=== PATIENT | female | born 1965 | race Caucasian/White ===

== ENCOUNTER 2023-04-27 07:45 | Inpatient (IN) | payer OTHER, SELFPAY ==
[2023-03-04 12:59] VITALS: BMI 32.4
[2023-04-27] VITALS (14 sets, daily range): BP systolic 112–133; BP diastolic 62–87; PULSE 92–112; RESP 13–20; TEMP 36.1–36.8; O2SAT 90–99; BMI 33.8
[2023-04-27] MEDS: ACETAMINOPHEN 325 MG TABLET 975 MG PO (08:35)
[2023-04-27] MEDS: GABAPENTIN 300 MG CAPSULE PO (08:36)
[2023-04-27] MEDS: LACTATED RINGERS 1,000 ML 42 ML IV ×2 (08:37→12:14)
--- NOTE | 2023-04-27 08:53 | P.HP_ITS ---
History of Present Illness History of Present Illness Date Patient Seen: 04/27/23 Time Patient Seen: 08:54 Date of Onset of Symptoms: 07/31/22 Chief complaint: back pain, right leg pain Narrative: Karen is a 57 year old F who is status post bilateral L4-5 transforaminal epidural steroid injection on November 18. Unfortunately she only received brief relief for a few days from the injection. She continues to have pain that is 5?6/10. She continues to have pain in the lower lumbar spine with cramping numbness and tingling down bilateral thighs and buttocks and lower extremities. Conservative treatments have included massage PT, and injections. Treatments have failed and symptoms are worsening. She has significant limitation performing activities of daily living due to her pain. She used to work as a special medical practice manager, which was causing worsening symptoms due to the physical demand. She is transitioning away from this line of work which she feels will help lower the risks for future flare ups. She has symptoms of neurogenic claudication with worsening leg symptoms when she stands and relief when she leans forward and lean on a shopping cart. [facility] Medical History Seizure disorder History of COVID-19 (2019) Anesthesia complication Depression Spinal stenosis UTI (urinary tract infection) (02/17/23) Asthma HLD (hyperlipidemia) HTN (hypertension) Fibromyalgia Epilepsy Surgical History History of surgery History of surgery History of total right knee replacement History of total left knee replacement Hx of hernia repair (08/2022) History of kidney surgery (12/2022) History of endometrial ablation Hx of cholecystectomy (06/1996) History of (06/1996) Hx of tonsillectomy Social History household members: spouse Smoking Status: Never smoker alcohol intake: never Meds Home Medications and Allergies Home Medications Medication Instructions Recorded Confirmed Type aspirin 81 mg tablet,delayed 81 mg PO DAILY 03/04/23 04/27/23 History release cyclobenzaprine 10 mg tablet 40 mg PO BEDTIME 03/04/23 04/27/23 History lisinopril 20 mg tablet 20 mg PO BEDTIME 03/04/23 04/27/23 History metoprolol succinate 50 mg 50 mg PO BEDTIME 03/04/23 04/27/23 History tablet,extended release 24 hr pregabalin 100 mg capsule (Lyrica) 200 mg PO BEDTIME 03/04/23 04/27/23 History Allergies Allergy/AdvReac Type Severity Reaction Status Date / Time phenobarbital Allergy Mild Hives, Verified 04/27/23 08:29 Fever Sulfa (Sulfonamide Allergy Mild Hives, Verified 04/27/23 08:29 Antibiotics) Fever Review of Systems Review of Systems ROS: Yes All systems reviewed with the patient and are negative except as otherwise documented Exam Const General: cooperative Orientation: alert and oriented x3 Back/Spine/Pelvis Other: painful ROM of lumbar at waist level, skin intact no lesions Neuro Other: + straight leg raise to RLE, sensibility decreased to R L5, S1 dermatome, motor strength 4/5 in right TA at 4/5. Assessment & Plan Assessment & Plan narrative: Ms. Singleton is here for evaluation of her lumbar spine. She has back pain, leg symptoms consistent with neurogenic claudication. She has previous treatment including PT, massage therapy, multiple IVÁN in her lumbar spine without significant relief. She has L3-4, L4-5, L5-S1 spinal stenosis, L4-5 anterolisthesis measuring 6 mm, epidural lipomatosis contributing to moderate spinal stenosis at L3-4, L5-S1. I discussed additional treatment options including surgery. She is significantly limited by her symptoms and she failed over 6 months of conservative care. She may benefit from L4-5 decompression and fusion to address her anterolisthesis. She will benefit from L3-4, L5-S1 laminectomy for decompression to address her spinal stenosis. Risks for surgery include but not limited to bleeding, infection, nerve/dura/bladder/bowel/blood vessel injury, need for additional procedure, even . Patient understands and would like to proceed with surgery. I scheduled her for L3-4, L5-S1 laminectomy, L4-5 TLIF.
[2023-04-27] MEDS: CEFAZOLIN 2 GM/100 ML PREMIX 100 ML IV ×2 (10:05→18:10)
--- NOTE | 2023-04-27 10:21 | SUR.OPER ---
Prone on spine table, head in foam head support, padded chest and pelvic supports, gel pad at knees, lower legs supported by pillows; nipples, genitalia and toes free of pressure, arms secured on foam padded arm boards at <90 degrees abduction. Tape over blanket at thigh secured to table.
[2023-04-27] MEDS: BUPIVACAINE 0.25% (PF) 60 ML, EPINEPHrine 0.15 MG INJ (10:36)
[2023-04-27] MEDS: BUPIVACAINE LIPOSOME 266 MG/20 ML VIAL INJ (10:36)
--- NOTE | 2023-04-27 13:13 | P.OP_ITS ---
Operative Date/Time/Diagnoses Date of procedure: 04/27/23 Time of procedure: 10:00 Pre-op diagnosis: 1. L4-5 spondylolisthesis 2. L4-5, L5-S1 spinal stenosis with neurogenic claudication 3. Epidural lipomatosis Post-op diagnosis: same Procedure & Clinicians Procedure: 1. L4-5 Postero-lateral and posterior interbody fusion 2. L4-5 interbody cage placement. 3. L4-5 decompressive laminectomy with bilateral facetecomies 4. L4-5 Posterior non-segmental instrumentation 5. L5-S1 laminectomy 6. Pavillion of bone marrow from iliac crest 7. Utilization of microsurgical technique and operating microscope Same procedure as scheduled: Yes Indications: Patient has been having chronic back pain and worsening bilateral leg weakness numbness and cramping. Patient was found to have L4-5 L5-S1 spinal stenosis L4-5 spondylolisthesis with epidural lipomatosis correlating with her symptoms. Patient failed multiple conservative management with worsening pain weakness and numbness in her lower extremity. Patient has been having difficulty performing activity of daily living. After discussing risks benefits of treatment options, patient elected proceed with surgery. Surgeon: Don Moreira Human Resources Intern: Laura Byrd Click Yes if Unassisted: No Anesthesia Type: General Operative Notes Closure Type: primary Specimen(s): none sent Prosthetic devices, grafts, tissues, transplants, or devices: Globus revolve screws, Rise cage Estimated Blood Loss (mL): 150 Blood products transfused: none Procedure in detail: Patient was seen in the preoperative area. Risks and benefits of the surgery was discussed with the patient. Informed consent was obtained from the patient and placed in the chart. Surgical site was marked. Patient was taken to the operative room. General anesthesia was administered. Prophylactic antibiotic was given to the patient less than 30 min before the incision was made. Patient was placed into a prone position on the Jonny table. Patient's back was then prepped and draped in the sterile fashion. Time-out was performed at this time. Using AP and lateral C-arm imaging the interval between L4-5 L5-S1 was identified and marked on patient's back. A 2 inch incision 2 in from midline was made on the right side first. The fascia was incised in line with skin incision. Globus MARS retractors was placed inside the incision and docked onto the L4 lamina. Using microsurgical technique and operating microscope, a L4 laminectomy and L4-5 facetectomy was performed using a Kerrison rongeur. The laminectomy and facetectomy was performed in order to decompress patient's cauda equina as well as the nerve roots exiting at the L4-5 level. The disc space at L4-5 was identified. And a total diskectomy was performed at L4-5 level. The endplates were decorticated using a rasp and shaver. The total diskectomy and decortication was performed at L4-5 level in order to to accomplish a L4-5 fusion. The local bone from the laminectomy and facetectomy was saved for local bone grafting. After the total diskectomy and decortication was completed, DBM bone graft material was combined with local bone that was harvested earlier. At this time, a separate skin is incision was made over the iliac crest. A Jamshidi needle was inserted into the iliac crest through a separate skin incision. 5 cc of bone marrow aspiration was obtained through the separate skin incision using a Jamshidi needle from the iliac crest. The bone marrow aspiration was combined with local bone and the via cell bone grafting material. The bone grafting material was placed into the L4-5 interbody space along with a expandable cage. The cage was expanded to its maximum height using the torque limiting screwdriver. At this time the MARS retractor was redirected over the L5 lamina. Using microsurgical technique and operating microscope, a L5-S1 laminectomy was performed using the Kerrison rongeur. The ligamentum flavum was also resected at the site of the laminectomy for further decompression of the epidural space. Patient was found have significant amount of epidural lipomatosis at the L5-S1 epidural space. The lipoma was also resected at the site of the laminectomy to further decompress the epidural space. At this time a mirror image incision was made on the left side. The fascia was incised in line with the skin incision. Globus MARS retractor was inserted and docked onto the L4-5 posterolateral gutter. Using the power drill, posterior- lateral decortication was performed at L4-5 level until bleeding cortical bone was identified. The remaining bone grafting material was placed into the L4-5 posterior lateral gutter he order to accomplish posterolateral fusion at the L4- 5 level. Using the double C-arm technique, pedicle screws were placed into the L4 and L5 pedicles bilaterally. This was done by placing the Jamshidi needle into the pedicles, then placing the guidewires over the Jamshidi needle, and finally placing the cannulated screws over the guidewires bilaterally. After the pedicle screws were placed, 2 titanium rods was locked into the heads of the pedicle screws using locking caps and torque limiting screwdriver. During screw placement, patient's bone was felt to be soft consistent with osteopenia or osteoporosis. Larger size 7.5 mm diameter screws were used in order to gain additional purchase with exception of the L4 right pedicle which was only able to accommodate a 6.5 mm screw. After all the hardware was placed, and confirmed with AP and lateral C-arm imaging, the wound was then irrigated with sterile normal saline and packed with Ray-Nadiya gauze for 3 min to accomplish hemostasis. After the gauze was removed the deep fascia was closed with #1 Vicryl suture. The subcutaneous layer was closed with 2-0 Vicryl. The skin was closed with skin jeanine. Patient tolerated the procedure well. There were no complications. Neuro monitoring was utilized during the entire procedure the signal was stable throughout entire procedure. The Operation could not have been safely performed without compromising the technical result or length of the procedure, without the assistance of a skilled medical office receptionist assistant. The medical office receptionist assistant was medically necessary for proper positioning, retraction and manipulation of instruments, proper exposure, surgical preparation, and manipulation of tissue. Complications: none Post-operative Condition: stable Disposition: PACU Plan for aftercare: Admit to inpatient hospital
--- NOTE | 2023-04-27 13:22 | DI.RAD.S_ITS ---
PROCEDURE: XR LUMBAR SPINE 2-3V INDICATIONS: L4-5 TLIF TECHNIQUE: 2 intraoperative views of the lumbar spine were acquired. COMPARISON: None. FINDINGS: Bones: Intraoperative views during L4-5 posterior lumbar fixation and discectomy. IMPRESSION: Intraoperative views during L4-5 posterior lumbar fixation and discectomy. Hardware appears intact. Dictated by: Graham Saini M.D. on 04/27/2023 at 13:59 Approved by: Graham Saini M.D. on 04/27/2023 at 14:05
[2023-04-27] MEDS: OXYCODONE IR 5 MG TABLET PO (14:22)
[2023-04-27] MEDS: LACTATED RINGERS 1,000 ML 125 ML IV (14:45)
--- NOTE | 2023-04-27 14:47 | SUR.PHASEI ---
Angelique RN notified that bladder scan completed post procedure with 50ml retaining. Also aware that patient is receiving their second bag and has completed one liter of fluid intake
[2023-04-27] MEDS: ONDANSETRON 4 MG/2 ML INJ IV (15:17)
[2023-04-27] MEDS: OXYCODONE IR 10 MG TABLET PO ×2 (15:59→19:39)
[2023-04-27] MEDS: ONDANSETRON 4 MG ODT SL (19:42)
[2023-04-27] MEDS: METOPROLOL ER 50 MG TABLET PO (20:59)
[2023-04-27] MEDS: DOCUSATE 100 MG CAPSULE PO (21:00)
[2023-04-27] MEDS: lisinopriL 20 MG TABLET PO (21:00)
[2023-04-27] MEDS: CYCLOBENZAPRINE 10 MG TABLET 40 MG PO (21:00)
[2023-04-27] MEDS: SENNOSIDES 8.6 MG TABLET 17.2 MG PO (21:00)
[2023-04-27] MEDS: PREGABALIN 50 MG CAPSULE 200 MG PO (21:01)
[2023-04-28] VITALS: BP 106/59; PULSE 95; RESP 16; TEMP 36.1; O2SAT 99
[2023-04-28] MEDS: OXYCODONE IR 10 MG TABLET PO ×4 (00:12→12:56)
[2023-04-28] MEDS: CEFAZOLIN 2 GM/100 ML PREMIX 100 ML IV (01:35)
[2023-04-28 05:39] LABS: Hematocrit 27.4 % (36-46); Hemoglobin 9.6 g/dL (12.0-16.0)
[2023-04-28] MEDS: DOCUSATE 100 MG CAPSULE PO (08:13)
[2023-04-28] MEDS: LACTATED RINGERS 1,000 ML 125 ML IV (08:40)
--- NOTE | 2023-04-28 08:45 | PT.IIE ---
Current Diagnoses Spondylolisthesis, lumbar region (04/27/23) Spinal stenosis, lumbar region with neurogenic claudication (04/27/23) Surgery Performed Operation Date: 04/27/23 09:30 Actual Procedures p L4-5 TLIF; L5-S1 laminectomy - Don Moreira MD Surgical History (Last Reviewed 04/27/23 @ 08:56 by Don Moreira MD) History of (06/1996) History of endometrial ablation History of kidney surgery (12/2022) History of surgery History of surgery History of total left knee replacement History of total right knee replacement Hx of cholecystectomy (06/1996) Hx of hernia repair (08/2022) Hx of tonsillectomy Medical History (Last Reviewed 04/27/23 @ 08:56 by Don Moreira MD) Anesthesia complication Asthma Depression Epilepsy Fibromyalgia History of COVID-19 (2019) HLD (hyperlipidemia) HTN (hypertension) Seizure disorder Spinal stenosis UTI (urinary tract infection) (02/17/23) Physical Therapy Inpatient Evaluation/Re-Eval M1 PT/OT-IP Prior Functional Status Start: 04/28/23 11:34 Freq: NEEDED Status: Active Protocol: Document 04/28/23 08:45 AB (Rec: 04/28/23 11:48 AB [id number]) Medical Review Prior Functional Status Medical History Reviewed Yes Communication able to make needs known Mobility and Gait pt stated that she was independent with all mobilities and ambulation without AD Activities of Daily Living and IADL's per OT note: Had pain but able to do ADL and IADL needs. Social History Household Members spouse Living Arrangements House Number of Floors (Floors) One Floor Number of Stairs To Enter/Railing? 2 platform steps with bilateral rails. Home Environment High Toilet,Tub/Shower Home Equipment Front Wheel Walker,Shower Seat without Backrest,Skin Toggler,Grab Bars Near Toilet,Grab Bars In Shower Additional Social History Comment pt stated that her mom lives ~ 1 mile away and can assist her if needed M2 PT-IP Current Condition Start: 04/28/23 11:34 Freq: NEEDED Status: Active Protocol: Document 04/28/23 08:45 AB (Rec: 04/28/23 11:48 AB [id number]) Physical Therapy Current Condition Current Condition Evaluation Date 04/28/23 Treatment Diagnosis s/p L4-5 TLIF; L5S1 lami; difficulty in walking Onset Date 04/27/23 M3 PT-IP Subjective Start: 04/28/23 11:34 Freq: NEEDED Status: Active Protocol: Document 04/28/23 08:45 AB (Rec: 04/28/23 11:48 AB [id number]) Subjective Physical Therapy Visit Type Type Initial Evaluation Visit Start Time 08:45 Visit Stop Time 09:55 Number of [facility]ENTERER Visits 0 Physical Therapy Visit Comments Patient Comments agreeable to do PT Therapy Pain Assessment Pain When Pain Assessed At Rest Pain Present Pain Present Pain Reported Location low back Intensity 6 Scale Used Numeric (0 - 10) Pain Management Techniques Distraction,Modification of Treatment,Re-positioning, Timing of Activity with Medications M4 PT-IP Mobility and Gait Start: 04/28/23 11:34 Freq: NEEDED Status: Active Protocol: Document 04/28/23 08:45 AB (Rec: 04/28/23 11:48 AB [id number]) PT-Bed Mobility Assessment Rolling Type of Rolling Log Rolling Level of Assist Standby Assistance Supine to Sit Supine to Sit Standby Assistance Sit to Supine Sit to Supine Standby Assistance,Minimal Assistance PT-Transfer Assessment Sit to and From Stand Sit to and from Stand Contact Guard Assistance,1 Person Assistance,Use of Upper Extremities Equipment Transfer Assistive Device Gait Belt,Front Wheeled Walker Orthotic/Prosthetic Devices or Brace: No Transfers Transfer Destination Bed,Chair Transfer Technique ambulated Transfer Ability Level of Assist Contact Guard Assistance,1 Person Assistance,Use of Upper Extremities Comments Mobility Comments pt supine in bed and agreeable to do PT. spouse in room with pt. obtained PLOF and home set up from pt and spouse . post-op folder provided and reviewed contents. educated pt regarding back precautions and log roll bed mobility. BP in supine: 94/55. pt completed log roll supine to sit SBA and max cues. completed sit to supine min A with LE elevation to bed and max cues for techniques. pt with difficulty following directions and gets easily distracted. stated that the pain meds make her brain foggy . pt completed sit to supine SBA and cues. Bp in sittin/56 completed sit to stand CGA and cues and ambulated to the chair using FWW CGA. BP: 95/57. caregiver training conducated. educated spouse on how to use safety belt and how to assist pt. spouse was able to put safety belt on pt. BP checked prior to standin/55. spouse assisted pt with sit to stand ambulated pt to EOB using FWW CGA. BP checked: 100/52. pt completed sit<>supine x 2 sets with initially PT providing cues but spouse was able to intruct pt on 2nd attempt. pt completed sit to stand from EOB with spouse assisting and ambulated to the chair using FWW CGA. stair climbing training. educated pt and spouse regarding car transfers and stair climbing. spouse assisted pt with sit to stand CGA and ambulated pt towards the platform step using FWW CGA. pt completed up/down step using FWW CGA with spouse assisting pt. pt repeated x 2 sets. pt ambulated back to her room using fWW CGA and sat on the chair. positioned pt on the chair. call light and table placed within reach. pt and spouse without further concerns. BP at end of PT session: 98/56. Gait Assessment Gait Gait Assistance Required: Contact Guard Assist Distance (Feet) 40 Able to Maintain Weight Bearing Status Yes During Gait Assistive Devices Assistive Device Gait Belt,Front Wheeled Walker Orthotic/Prosthetic Devices or Brace: No Gait Deviations General Gait Pattern Antalgic,Decreased Stride Length,Decreased Feet Clearance Factors Limiting Gait Function Factors Limiting Gait Function Decreased Activity Tolerance, Decreased Strength,Difficulty Following Directions,Limited Range of Motion,Pain,Poor Balance,Poor Safety Awareness Stair Climbing Assessment Evaluation Level of Assist On Stairs Contact Guard Assistance Devices Stair Climbing Assistive Devices Front Wheel Walker Technique/Endurance Stair Climbing Direction Ascend and Descend Stair Climbing Technique Step to Step Number of Steps Climbed 1 Query Text: Stair Climbing Set # Repetitions (reps) 2 PT-Balance Assessment Sitting Balance and Reactions Static Sitting Balance Ability Normal Dynamic Sitting Balance Ability Good Standing Balance and Reactions Static Standing Balance Ability Fair Dynamic Standing Balance Ability Fair Device Used FWW M5 PT-IP Objective Assessments Start: 04/28/23 11:34 Freq: NEEDED Status: Active Protocol: Document 04/28/23 08:45 AB (Rec: 04/28/23 11:48 AB [id number]) Orientation Orientation/Cognition Level of Alertness Alert Orientation Name,Situation Language Function Ability No Deficits Noted Safety Awareness Decreased Safety Awareness Memory Description Short Term Impaired Gross Range of Motion Lower Extremity ROM Assessment Within Functional Limits Strength Lower Extremity Strength Assessment Within Functional Limits Coordination Assessment Gross Coordination Gross Coordination WNL Muscle Tone Muscle Tone WNL Yes M6 PT-IP Treatment Start: 04/28/23 11:34 Freq: NEEDED Status: Active Protocol: Document 04/28/23 08:45 AB (Rec: 04/28/23 11:48 AB [id number]) Physical Therapy Treatment Education Education Provided Precautions,Weight Bearing Status,Post-Op Packet,Safety M7 PT-IP Assessment and Plan Start: 04/28/23 11:34 Freq: NEEDED Status: Active Protocol: Document 04/28/23 08:45 AB (Rec: 04/28/23 11:48 AB [id number]) PT Summary Assessment and Plan Potential Rehabilitation Potential Fair Status of Condition at Evaluation Stable Summary Impairments Pain,Balance,Sensation, Cognition,Bed Mobility, Transfers,Gait,Activity Tolerance Assessment Summary pt is a 58 y/o F s/p L4-5 TLIF , L5S1 laminectomy POD 1. pt requiring CGA with mobility and cues for techniques and safety. caregiver training conducted and spouse was able to assist pt safely. pt may go home when medically stable. Goals Bed Mobility Goal Independent Transfer Goal Independent,Front Wheeled Walker Gait Goal Independent,Front Wheel Walker Gait Distance 250 Other Goals uup/down 2 platform steps using FWW mod I Days to Meet Goals 5 Frequency of Treatment Frequency Of Treatment Twice a Day Treatment Plan Physical Therapy Treatment Plan Bed Mobility Training,Transfer Training,Gait Training, Therapeutic Exercise,Balance Retraining,Post Op Education, Discharge Planning,Hot or Cold Pack,Neuromuscular Re-ed, Coordination Retraining,Manual Therapy Precautions Lumbar Precautions Log Roll,No Twisting,Limit Bending,Lifting Restriction of 10 lbs,Gait Belt above Incisional Area Recommendations To Nursing Amount of Assist Needed 1 Person Assist Discharge Recommendations PT Discharge Recommendations Home with Assistance Transportation Needs at Discharge Private Vehicle
--- NOTE | 2023-04-28 11:05 | OT.IP.EVAL ---
Current Diagnoses Spondylolisthesis, lumbar region (04/27/23) Spinal stenosis, lumbar region with neurogenic claudication (04/27/23) Surgery Performed Operation Date: 04/27/23 09:30 Actual Procedures p L4-5 TLIF; L5-S1 laminectomy - Don Moreira MD Past Medical History (Last Reviewed 04/27/23 @ 08:56 by Don Moreira MD) Anesthesia complication Asthma Depression Epilepsy Fibromyalgia History of COVID-19 (2019) HLD (hyperlipidemia) HTN (hypertension) Seizure disorder Spinal stenosis UTI (urinary tract infection) (02/17/23) Surgical History (Last Reviewed 04/27/23 @ 08:56 by Don Moreira MD) History of (06/1996) History of endometrial ablation History of kidney surgery (12/2022) History of surgery History of surgery History of total left knee replacement History of total right knee replacement Hx of cholecystectomy (06/1996) Hx of hernia repair (08/2022) Hx of tonsillectomy Occupational Therapy Inpatient Evaluation/Re-Eval M1 PT/OT-IP Prior Functional Status Start: 04/28/23 11:05 Freq: NEEDED Status: Active Protocol: Document 04/28/23 11:05 [facility] (Rec: 04/28/23 11:21 [facility] [id number]) Medical Review Prior Functional Status Communication independent Mobility and Gait Had pain but did not use a device per pt for walking. Activities of Daily Living and IADL's Had pain but able to do ADL and IADL needs. Prior Functional Level (Other details) Pt's to be home the tomorrow and then her mom to be there to assist the pt. Social History Household Members spouse Living Arrangements House Number of Floors (Floors) One Floor Number of Stairs To Enter/Railing? 2 platform steps with bilateral rails. Home Environment High Toilet,Tub/Shower Home Equipment Front Wheel Walker,Shower Seat without Backrest,Mine Supervisor,Grab Bars Near Toilet,Grab Bars In Shower M2 OT-IP Current Condition Start: 04/28/23 11:05 Freq: Status: Active Protocol: Document 04/28/23 11:05 [facility] (Rec: 04/28/23 11:21 [facility] [id number]) Occupational Therapy Current Condition Current Condition Evaluation Date 04/28/23 Treatment Diagnosis S/P L4-5, L5-S1 laminectony, L4-5 TLIF Diagnosis Onset Date 04/27/23 Post Operative Precautions Lumbar Precautions Log Roll,No Twisting,Limit Bending,Lifting Restriction of 10 lbs,Gait Belt above Incisional Area M3 OT- IP Subjective and Pain Start: 04/28/23 11:05 Freq: Status: Active Protocol: Document 04/28/23 11:05 [facility] (Rec: 04/28/23 11:21 [facility] [id number]) OT- Subjective Occupational Therapy Visit Type Type Initial Evaluation Visit Start Time 10:15 Visit Stop Time 11:05 Occupational Therapy Visit Comments Patient Comments Pt wanting to use the bathroom and her present training. Patient/Caregiver Goals To go home. OT Pain Assessment Pain When Pain Assessed At Rest Pain Present Pain Present Pain Reported M4 OT- IP ADL's Start: 04/28/23 11:05 Freq: Status: Active Protocol: Document 04/28/23 11:05 [facility] (Rec: 04/28/23 11:21 [facility] [id number]) OT DIF-Kquk-Rdhzlas General Evaluation Self-Feeding Ability Independent OT ADL-Grooming General Evaluation Grooming Ability Standby Assistance Areas Needing Assistance Retrieving/Set-up of Grooming Items Comments OT Grooming Comments Able to do while standing with FWW. OT ADL-Oral Care General Eval Oral Care Ability Independent OT ADL-Dressing General Eval Lower Body Dressing Ability Maximum Assistance Areas Needing Assistance Socks Comments OT Dressing Comments Able to educated pt on LB dressing equipment so able to follow her back precautions and increase her independence for ADl needs. OT ADL-Toileting General Evaluation Toileting Ability Moderate Assistance Areas Needing Assistance Manage Clothing,Perform Perineal Hygiene Comments OT Toileting Comments Pt unable to reach if having a bowel movement to clean and will need asisst or use of toilet paper aid or to obtain a bidet. Pt states usually wipes from the back to front and educated best to wipe from front to back to prevent from infections. Pt has a grab bar and counter to use at home to assist to stand from the toilet. OT ADL-Bathing Comments OT Bathing Comments Not performed. Suggested to do a dry run on getting in and out of the tub/shower initially otherwise may need a tub bench. Spoke of care for the dressing in the shower to cover it. M5 OT- IP IADL's Start: 04/28/23 11:05 Freq: Status: Active Protocol: Document 04/28/23 11:05 [facility] (Rec: 04/28/23 11:21 [facility] [id number]) OT-Instrumental Activities of Daily Living Deficits IADL Deficits Identified Deficits Home Safety Awareness Awareness of Need for Assistance at Home Good Awareness Ability to Problem Solve Emergency Able to Problem Solve Situations Medication Management Medication Management Comments Pt's to assist if needed. Money Management Money Management Comments Pt's to assist if needed. Meal Preparation Meal Preparation Caregiver Provides Assist Survey Rodman Survey Rodman Caregiver Provides Assist M6 OT- IP Functional Cognition Start: 04/28/23 11:05 Freq: Status: Active Protocol: Document 04/28/23 11:05 [facility] (Rec: 04/28/23 11:21 [facility] [id number]) Cognitive Factors Limiting Selfcare Function Cognitive Ability Level of Alertness Alert Patient Orientation Name,Age,Birthday,Month,Date, Year,Day of Week,Place, Situation Attention Span Ability Capable of Focused Attention, Capable of Sustained Attention Ability to Follow Commands Able to Follow One Step Commands Safety Awareness Decreased Ability to Apply Precautions Cognitive Comments Cognitive Assessment Comments Pt needing cues to incorporate her back precautions for ADL and mobility needs. Pt is still a little groggy. VC for reassurance of sequence for safety during transitions, hand placement and FWW use. OT- Vision and Hearing OT- Hearing Assessment OT- Hearing Assessment WFL OT- Vision Assessment Visual Acuity Glasses All The Time M7 OT- IP Mobility and Balance Start: 04/28/23 11:05 Freq: Status: Active Protocol: Document 04/28/23 11:05 [facility] (Rec: 04/28/23 11:21 [facility] [id number]) OT-Transfer Assessment Sit to and From Stand Sit to and from Stand Contact Guard Assistance Transfers Transfer Ability Standby Assistance Technique Transfer Destination Chair,Toilet Transfer Technique Stand Step Pivot Devices Transfer Assistive Devices Gait Belt,Front Wheeled Walker Comments Mobility Comments CGA to stand and SBA with FWW afterwards. OT- Balance Assessment Sitting Balance and Reactions Static Sitting Balance Ability Good Dynamic Sitting Balance Ability Good Standing Balance and Reactions Static Standing Balance Ability Good Dynamic Standing Balance Ability Fair M8 OT- IP Objective Assessments Start: 04/28/23 11:05 Freq: Status: Active Protocol: Document 04/28/23 11:05 [facility] (Rec: 04/28/23 11:21 [facility] [id number]) OT Gross Range of Motion Upper Extremity Range of Motion ROM Impairments WFL for needs. OT Strength Comments Strength Comments WFL for needs. M9 OT- IP Assessment and Plan Start: 04/28/23 11:05 Freq: Status: Active Protocol: Document 04/28/23 11:05 [facility] (Rec: 04/28/23 11:21 [facility] [id number]) OT Summary Assessment and Plan Potential Rehabilitation Potential Excellent Analytic Complexity at Evaluation Low Summary OT Impairments Pain,Strength,Balance, Functional Mobility,Grooming, Dressing,Toileting,Bathing, Toilet Transfers,Shower Transfers Progress Towards Goals Progressing Toward Goals Assessment Summary Pt low complexity and main barriers are pain, needing assist for LB dressing, toileting, and bathing needs and will benefit form LB dressing equipment and from a toilet paper aid versus bidet . Pt's states good understanding for ADl, transfers including car transfer, and mobility needs. Pt has good family support and to go home when medically stable. Pt's BP sitting 87/45, 94/45, after standing 87/50 and after use of toilet 99/67, nursing notified. Goals Grooming Goal Independent Dressing Goal Independent,Long Handled Shoe Horn,Mine Supervisor,Sock Aid Toileting Goal Independent,Toilet Paper Aid Toilet Transfer Goal Standby Assistance Shower Transfer Goal Standby Assistance Days to Meet Goals 5 Frequency of Treatment Frequency Of Treatment Once a Day Treatment Plan OT Treatment Plan ADL Training,Functional Mobility,Patient/Family Education,Discharge Planning Discharge Recommendations OT Discharge Recommendations Home with Assistance Home Equipment Needs LB dressing equipment, toilet paper aid /bidet Transportation Needs at Discharge Private Vehicle
[2023-04-28] MEDS: ACETAMINOPHEN 325 MG TABLET 650 MG PO (12:56)
--- NOTE | 2023-04-28 13:33 | CM.DANOTE ---
Patient is a 58 yo female who was admitted on 04/27/23 for TLIF. Pt has [employer] for insurance and her PCP is Tremayne Gomez. EMR was reviewed. Per Ortho, pt tolerated procedure well and to work with PT/OT and likely stable for discharge today. Per PT/OT, recommending safe d/c home with spouse assist and outpt PT. SW met bedside with pt and spouse and explained role and they confirm they live at home in [place] and both are active and independent at baseline. Pt does not use DME to ambulate and still drives. 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 Pt has a hx of multiple ortho surgeries due to osteoarthritis as well as a kidney surgery due to a malignant mass in 2021. Pt denies any hx of HH or SNF but has worked with outpt PT multiple times. 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 Adult son, DIL, and two grandchildren live locally and their adult Dtr and family now live in [place]. Pt and spouse do not anticipate any needs at d/c other than outpt f/u and preference is to discharge home this afternoon after lunch. RN updated and pt will be medicated prior to discharge. Plan: Patient to d/c home today via spouse POV and outpt f/u and no further SW needs at this time. RAMY Kerr Discharge Planning/Care Management Advanced directive, confirm from FAMILY Start: 04/27/23 15:54 Freq: Q24H Status: Active Protocol: Document 04/27/23 15:54 SB (Rec: 04/27/23 16:11 SB [id number]) Advance Directive, confirm on record Time 15:45 Person contacted Jose Francisco Singleton - spouse Copy received No Advanced directive available on record No CM Discharge Assessment Start: 04/28/23 13:31 Freq: Status: Active Protocol: Document 04/28/23 13:32 BF (Rec: 04/28/23 13:33 BF [id number]) Discharge Planning Assessment Assigned Non Profit Director RAMY Nye DPOA/Assigned Designee Name spouse Jose Francisco Contact Information [phone] Advance Directives? Yes Advance Directives on File No History Provided By Patient,Significant Other, Medical Record Has Patient been admitted in last 30 No days? Prior Living Arrangements House Household Members spouse Type of transporation used prior to Drives own vehicle admit Independent with ADL's Yes Is patient alert and oriented? Yes Caregiver for Another No Patient/Family Preference OP PT Therapy Barriers to Discharge No Discharge Plan Home Community Services Physical Therapy Transportation Arrangement spouse bedside and will transport home Referrals Initiated None needed Whiteboard Updated in Patient Room with Yes name and ext. # of Non Profit Director Review Status In Process Please Provide Date Initial DC 04/28/23 Assessment Was Performed Next Review Type Continued Stay Review Pre-Anesthesia Assessment Start: 03/04/23 12:59 Freq: Status: Complete Protocol: Document 03/04/23 12:59 CAB (Rec: 03/04/23 13:34 CAB [id number]) Pre-Anesthesia Assessment PAC Comment Neurology visit 04/07/22, EEG scanned and in surgery folder for dos review Patient Information Reviewed Via Phone Assessment Assessment Completed With Patient Diagnostic Results BMP/CMP,CBC,EKG Comment Outside labs scanned, EKG done per pt, Surgeon office has- not here Primary Care Provider Tremayne Gomez Seen Specialist in Last 12 Months Yes Specialist Seen Orthopedist,Urologist,Other Comment Rheumatology, Neurology Primary Language [place] Economics Faculty Member Required No Height 168.91 cm Weight 92.533 kg Body Mass Index (BMI) 32.4 Hearing Ability Normal Visual Assist Glasses Dentition Type Teeth, Natural Present Barriers to Learning None Other Aids No Hx Anesthesia Reactions Yes: PONV Hx Family Anesthesia Reaction No Hx Malignant Hyperthermia No Hx Blood Transfusions Yes: s/p knee replacement '06 Hx Blood Transfusion Reaction No Anesthesia Review Requested No Direct Marketing Coordinator No alcohol intake never Smoking Status Never smoker Substance Use Type does not use Pain Present Pain Reported Musculoskeletal Symptoms Abnormal Gait,Back Pain, Difficulty Walking,Radiating Pain into Limb History of Falling (Recent or History of Yes ) Patient is completely paralyzed or No completely immobile Comment Balance issues Is patient on oxygen? No Does patient have SOLANO/SOB No Hx Sleep Apnea No Currently Taking a Beta Eris Yes: Metoprolol Can You Climb a Flight of Stairs Without Yes SOB Hx Chest Pain No Hx SOB No Hx Syncope or Dizziness No Anti-Coagulant Therapy No Has a Process Control Engineer No Cardiac Testing No Hx Pacemaker/ICD No Pacemaker Rep Required? No Cardiac Clearance Received Not Applicable Diet Type At Home Regular Dysphagia WW Gastrointestinal Symptoms None Urinary Catheter Present No Hx Urinary Self Catheterization No Diabetes No HgbA1C 5.8 Date 01/20/23 Patient No Lactating No Presence of External or Internal Medical Yes: Bilat knee, left ankle Devices Received a COVID vaccine? Yes Received all doses? No Marital Status Lives With spouse Current Living Arrangements House Number of Floors (Floors) One Floor Support System Spouse Does the Patient Have Assistance After Yes Surgery Patient Discharge Plan Description Return Home Comment Pt advised overnight length of surgery per surgeon office Feels Safe in Current Environment Yes Been Physically Hurt or Threatened By a No Person in Current Environment Do you have thoughts of harming yourself None or others? Are you currently considering suicide? No Do you have a plan to hurt yourself or No Plan others? Do You Have Any Spiritual Beliefs That No May Affect Your HC Choices? Do You Have Any Cultural Practices That No May Affect Your HC Choices? Comment Scientology Who Can We Speak to About Patient's Care Family, friends Identifying Code for Release of Patient Declines to issue Information Health Care Proxy/Next of Kin Jose Francisco () Health Care Proxy Emergency Contact Name Jose Francisco () Emergency Contact Advance Directives? Yes Advance Directives on File No Requested Patient Bring Advanced Yes Directives DOS Power of National Service Officer Yes Power of National Service Officer Name Jose Francisco () Power of National Service Officer PAC Instructions Durable medical equipment, Medications to take/avoid, Nasal antibiotic,No ETOH/ petroleum product on skin DOS, NPO,Post-op transportation,Pre -surgical wash,Sensory aids, Sturdy shoes/comfortable clothes,Do not bring valuables and remove jewelry
--- NOTE | 2023-04-28 14:14 | PC.NURSE ---
Discharge: Pt Ready to d/c to home. Has been cleared by PT/OT. Seen by PA and given d/c instructions. Tolerates diet w/out problems. Has been voiding w/out diff. Po Pain meds have been effective. Has been up and amb in the room. Spouse here and has been attentive to pt's needs. Bolus completed and pt reports she feels much less dizzy. Bulky dressing changed to back. Dual incisions with jeanine intact, minimal redness. Pt d/c to home via auto w/spouse.
--- NOTE | 2023-04-28 14:18 | P.DS_ITS ---
History of Present Illness History of Present Illness Date Patient Seen: 04/28/23 Time Patient Seen: 07:30 Chief complaint: back pain, right leg pain Narrative: Procedure: 1. L4-5 Postero-lateral and posterior interbody fusion 2. L4-5 interbody cage placement. 3. L4-5 decompressive laminectomy with bilateral facetecomies 4. L4-5 Posterior non-segmental instrumentation 5. L5-S1 laminectomy 6. [place] of bone marrow from iliac crest 7. Utilization of microsurgical technique and operating microscope Same procedure as scheduled: Yes Indications: Patient has been having chronic back pain and worsening bilateral leg weakness numbness and cramping. Patient was found to have L4-5 L5-S1 spinal stenosis L4-5 spondylolisthesis with epidural lipomatosis correlating with her symptoms. Patient failed multiple conservative management with worsening pain weakness and numbness in her lower extremity. Patient has been having difficulty performing activity of daily living. After discussing risks benefits of treatment options, patient elected proceed with surgery. Surgeon: Don Moreira Activities Director: Laura Lamas Yes if Unassisted: No Anesthesia Type: General Patient is found lying in bed comfortably with her . Denies any nausea or vomiting or increased numbness down the lower extremities. Pain is controlled with oral medications. She was able to sleep through the night. She is able to ambulate with walker to use the commode with assistance. Discharge Providers Provider Date of admission: 04/27/23 07:45 Discharge Date: 04/28/23 Primary care physician: Tremayne Gomez MD Consults: 04/27/23 14:52 Consult to Occupational Therapy Evaluate & Treat Comment: Physician Instructions: Evaluate and treat Consult to Physical Therapy Evaluate & Treat Comment: Physician Instructions: Evaluate and Treat Discharge provider: Fidel Albert PA-C Summary Hospital Course Discharge Diagnosis: Status post L3-4, L5-S1 laminectomy, L4-5 TLIF Hospital Course: Pain control. Physical therapy. Status at Discharge Cognitive/behavioral status at discharge: oriented Functional status at discharge: uses cane/walker Overall status at discharge: patient is back to baseline Time Spent with Patient Time spent: Less than 30 minutes Exam Vital Signs (past 8 hours): - 04/28/23 07:00 Oxygen Delivery Method Room Air Oxygen Delivery Method Room Air Oxygen Flow Rate 0 Narrative Exam Narrative: Dressing appears to be well maintained. No signs of drainage. No pain to deep palpation to bilateral thighs or calves. Sensation groslly intact throughout the lower extremities. Able to dorsiflex and plantarflex against resistance at the ankles bilaterally.. Const General: cooperative and comfortable Resp Effort & Inspection: normal respiratory effort and able to speak in complete sentences Objective Labs 04/28/23 04:55 Labs: Laboratory Results - last 24 hr 04/28/23 04:55 Hgb 9.6 L Hct 27.4 L PFSH Medical History Seizure disorder History of COVID-19 (2019) Anesthesia complication Depression Spinal stenosis UTI (urinary tract infection) (02/17/23) Asthma HLD (hyperlipidemia) HTN (hypertension) Fibromyalgia Epilepsy Surgical History History of surgery History of surgery History of total right knee replacement History of total left knee replacement Hx of hernia repair (08/2022) History of kidney surgery (12/2022) History of endometrial ablation Hx of cholecystectomy (06/1996) History of (06/1996) Hx of tonsillectomy Social History household members: spouse Smoking Status: Never smoker alcohol intake: never Discharge Assessment & Plan Assessment and Plan Assessment: Status post L3-4, L5-S1 laminectomy, L4-5 TLIF Plan of Treatment: 1) Prescribed oxycodone 5mg to take every 4 hours for post-operative pain and hydroxyzine 25mg to take every 6 hours as needed for post operative spasms or nausea. 2) No lifting, twisting, deep bending, prolonged sitting. 3) keep dressing clean and dry, no soaking the incision site and posterior times, no topical ointments or creams to the incision site. 4) Follow up in 2 weeks at [facility] for as scheduled for postop appointment, wound check, staple removal. Discharge Plan Discharge Plan Patient Disposition: Home Provider Discharge Comment: DC pending PT approval. Discharge orders & Medications Prescriptions: Continued cyclobenzaprine 10 mg Tablet 40 mg PO BEDTIME metoprolol succinate 50 mg Tablet Extended Release 24 Hr 50 mg PO BEDTIME lisinopril 20 mg Tablet 20 mg PO BEDTIME pregabalin [Lyrica] 100 mg Capsule 200 mg PO BEDTIME Discontinued aspirin [Aspir-81] 81 mg Tablet,Delayed Release (Dr/Ec) 81 mg PO DAILY Follow up/Referrals: Tremayne Gomez MD [Primary Care Provider] - Don Moreira MD [Physician] - 05/15/23 1:30 pm (Follow up w/ Sudhir Albert PA-C, at [facility] in [place].) Diet/Activity/Treatments Diet: Diet as Tolerated Activity: No deep bending or twisting at the waist. No lifting more than 10 pounds. Cold/Heat Therapy: Heating pad to low back as needed for pain. Skin/Wound/Dressing Care Report to your healthcare provider any signs of infection, such as:: chills, fever, night sweats, unusual drainage and unusual redness Dressing: May shower. Keep dressing as dry as possible. If dressing becomes wet or dirty, may remove and replace with clean, dry gauze. No bathing or otherwise soaking incisions. Do not apply any creams, lotions, or ointments to incisions. Visit Report/Discharge Packet Instructions: DI for Constipation, How to Prevent Falls, DI for Prescription Opioid Use, How to Monitor Your Blood Pressure at Home, DI for Transforaminal Lumbar Interbody Fusion Stand Alone Forms: Patient Portal/API, Stroke Signs & Symptoms, Surgery Discharge Discharge Data Primary Care Provider: Tremayne Gomez
== END 2023-04-28 14:15 | disposition home or self-care (01) | DRG 455 ==
PROVIDERS: Admitting Provider Orthopaedic Surgery Orthopaedic Surgery of the Spine; PCP Family Medicine; Referring Provider Orthopaedic Surgery Orthopaedic Surgery of the Spine; Visit Provider Orthopaedic Surgery Orthopaedic Surgery of the Spine
PROC: 0SG00AJ Fusion of Lumbar Vertebral Joint with Interbody Fusion Device, Posterior Approach, Anterior Column, Open Approach (ICD-10-PCS; principal; 2023-04-27 09:30)
DX: M43.16 Spondylolisthesis, lumbar region (principal); M48.062 Spinal stenosis, lumbar region with neurogenic claudication; E88.2 Lipomatosis, not elsewhere classified; M48.07 Spinal stenosis, lumbosacral region; I10 Essential (primary) hypertension
CPT/HCPCS: 36415; 72100; 76000; 85014; 85018; 97161; 97165; 97530; 97535; C1713; C9290; J0171; J0330; J0690; J1100; J1170; J1885; J2250; J2405; J2704; J3010; J3490